=== PATIENT | male | born 1950 | race Caucasian/White ===

== ENCOUNTER 2020-05-18 08:21 | Outpatient (REF) | payer MEDICARE, BC, SELFPAY ==
[2020-05-18 11:26] LABS: Estimated Average Glucose 137 mg/dL; Hemoglobin A1c % 6.4 %
== END 2020-05-18 08:22 | disposition home or self-care (01) ==
LOC: HO.HMGCLDS 08:21
PROVIDERS: PCP Internal Medicine; Visit Provider Internal Medicine
DX: E11.9 Type 2 diabetes mellitus without complications (principal)
CPT/HCPCS: 83036

== ENCOUNTER 2024-04-09 06:26 | Day surgery (SDC) | payer MEDICARE, BC, SELFPAY ==
[2024-04-04 14:26] VITALS: BMI 30.2
[2024-04-09 06:39] VITALS: BP 170/72; PULSE 60; RESP 18; TEMP 36.9; O2SAT 98
[2024-04-09] MEDS: Lactated Ringers 1,000 ML 50 ML IVCONT (07:06)
--- NOTE | 2024-04-09 07:37 | MHC.SHP ---
Pre-Procedural Eval Section A - 24 Hr Update-Section A only Date of Service: 04/09/24 Section B - Complete if H&P > 30 days Chief Complaint: Encounter for screening for malignant neoplasm of Details of Present Illness: see H*P no changes Relevant Family History (Specify if Yes): No Relevant Social History: None Present Medications: see Short Stay Collaborative assessment Medical History: No relevant PMH Allergies: Allergies Allergy/AdvReac Type Severity Reaction Status Date / Time No Known Allergies Allergy Unverified 04/23/20 15:27 Review of Systems Sugical H&P ROS: Negative: Constitution, Cardiovascular, Respiratory, Neurological, Psychiatric, Hem-Onc, Allergic/Immunologic, Gastrointestinal, Genitourinary, Musculoskeletal, Integumentary, Endocrine and Eyes/Ears/Nose/Throat Exam Surgical H&P Exam: Normal: HEENT, Normal: Heart, Normal: Lungs, Normal: Extremities, Normal: Abdomen, Normal: Skin and Normal: Neurological Plan Diagnosis/Plan: Unchanged I have reviewed the history and physical and performed a pertinent physical examination on my patient. No changes have occurred unless specified. Time Spent With Patient Time: Total time managing care of this patient today ____ minutes.
--- NOTE | 2024-04-09 07:55 | P.CONAN_ITS ---
[facility] Past Medical History Medical History History of diet-controlled diabetes CAD (coronary artery disease) Hyperlipidemia HTN (hypertension) GERD (gastroesophageal reflux disease) Functional capacity: independent ambulation Family History Family history of problems with anesthesia: No Surgical History Surgical History Hx of cervical spine surgery History of coronary artery stent placement History of esophagogastroduodenoscopy (EGD) H/O colonoscopy History of Problems with Anesthesia: Yes Social History Social History Patient Tobacco Use Status: Never used Tobacco Have you been hit, kicked, punched, or otherwise hurt by someone within the past year? If so, by whom?: No Are you DNR?: No Advance Directives: No Advance Directives Information Provided: Yes Meds Allergies Allergy/AdvReac Type Severity Reaction Status Date / Time No Known Allergies Allergy Unverified 04/23/20 15:27 Active Medications: Current Medications Lactated Ringer's (Lr) 1,000 mls @ 50 mls/hr IVCONT .Q20H JESSIE Last Admin: 04/09/24 07:06 Dose: 50 mls/hr Home Medications ?Medication ?Instructions ?Recorded ?Confirmed ?Last Taken ?Type amlodipine 5 mg tablet 5 mg PO DAILY 04/04/24 04/04/24 04/08/24 History aspirin 81 mg tablet,delayed 81 mg PO DAILY 04/04/24 04/04/24 04/01/24 History release atorvastatin 10 mg tablet 10 mg PO DAILY 04/04/24 04/04/24 04/08/24 History carvedilol 12.5 mg tablet 12.5 mg PO DAILY 04/04/24 04/04/24 04/09/24 History losartan 50 mg tablet 50 mg PO DAILY 04/04/24 04/04/24 04/09/24 History spironolactone 25 mg tablet 25 mg PO DAILY 04/04/24 04/04/24 04/06/24 History Exam Height,Weight and Vital Signs: Height 5 ft 6 in Weight 84.277 kg Last Vital Signs Temp 98.5 F 04/09/24 06:39 Pulse 60 04/09/24 06:39 Resp 18 04/09/24 06:39 BP 170/72 H 04/09/24 06:39 Pulse Ox 98 04/09/24 06:39 O2 Del Method Room Air 04/09/24 06:39 Airway Mallampati Class: II TM Dist: >3cm Neck ROM: Full Heart: RRR Lungs: CTA Assessment and Plan Assessment Anesthesia Assessment: Anesthesia Plan Discussed Final Anesthetic Review Family History of Problems with Anesthesia: No History of Problems with Anesthesia: Yes NPO: Yes ASA Class: II Final Preanesthetic Review: Meds/Allgs Chart Reviewed, Consent Obtained/Reviewed and Anes Risks/Benef Reviewed Patient Risk: Low Procedure Risk: Low Anesthetic Plan Anesthetic Plan: MAC: Disposition: Standard PACU
[2024-04-09 08:21] VITALS: BP 92/40; PULSE 45; RESP 16; TEMP 36.1; O2SAT 96
--- NOTE | 2024-04-09 08:26 | OP_ITS ---
DATE OF SERVICE: 04/09/2024 SURGEON: Juice Kothari MD INDICATIONS: Colon cancer screening. PREOPERATIVE DIAGNOSIS: POSTOPERATIVE DIAGNOSIS: PROCEDURE PERFORMED: Colonoscopy to the terminal ileum with snare polypectomy. ESTIMATED BLOOD LOSS: COMPLICATIONS: ANESTHESIA: Monitored anesthesia care. ASSISTANTS: SPECIMENS: DESCRIPTION OF PROCEDURE: A history and physical performed, the risks and benefits of the procedure were explained to the patient. Informed consent was obtained. The patient placed in left lateral decubitus position. A digital rectal exam was performed and was found to be normal. The Olympus pediatric video colonoscope was introduced into the rectum and advanced to the cecum. The cecum was identified by transillumination, palpation, and identification of the ileocecal valve. Examination was performed and the scope was removed. He tolerated the procedure well and was taken to recovery in stable condition. FINDINGS: The terminal ileum was examined and appeared normal. The visualized colonic mucosa was normal. The quality of the prep was good. A single polyp measuring approximately 6 mm was identified in the cecum and removed with a snare. No other polyps were identified. Retroflexed examination showed some internal hemorrhoids. There was moderate sigmoid diverticulosis. IMPRESSION: Colon polyp. RECOMMENDATIONS: Follow up with the biopsy results. MD XOCHITL Bran/DOMINIC / [id number]
[2024-04-09 08:36] VITALS: BP 118/52; PULSE 48; RESP 16; TEMP 36.1; O2SAT 98
[2024-04-09 08:51] VITALS: BP 127/70; PULSE 50; RESP 17; TEMP 36.1; O2SAT 98
--- NOTE | 2024-04-09 09:40 | HO.POSTANES ---
Post Anesthesia Evaluation Post Anesthesia Evaluation Date of Service: 04/09/24 Vital Signs: Vital Signs Temp Pulse Resp BP Pulse Ox O2 Del Method 04/09/24 08:51 97 F 50 17 127/70 98 Room Air 04/09/24 08:36 97 F 48 L 16 118/52 L 98 Room Air 04/09/24 08:21 97 F 45 L 16 92/40 L 96 Room Air 04/09/24 06:39 98.5 F 60 18 170/72 H 98 Room Air Anesthesia: Monitored Mental Status: Awake Pain Control: Satisfactory Nausea/Vomiting: None Hydration: Adequate Anesthesia-Related Issues: No Anes. Related Issues
== END 2024-04-09 09:17 | disposition home or self-care (01) ==
PROVIDERS: PCP Internal Medicine; Visit Provider Internal Medicine Gastroenterology
PROC: 0DJD8ZZ Inspection of Lower Intestinal Tract, Via Natural or Artificial Opening Endoscopic (ICD-10-PCS; CPT 45378; principal; 2024-04-09 07:30)
DX: Z12.11 Encounter for screening for malignant neoplasm of colon (principal); Z80.0 Family history of malignant neoplasm of digestive organs; D12.0 Benign neoplasm of cecum; K57.30 Diverticulosis of large intestine without perforation or abscess without bleeding; K64.8 Other hemorrhoids; K59.00 Constipation, unspecified; K21.9 Gastro-esophageal reflux disease without esophagitis; I10 Essential (primary) hypertension; E11.9 Type 2 diabetes mellitus without complications; E78.5 Hyperlipidemia, unspecified; I25.10 Atherosclerotic heart disease of native coronary artery without angina pectoris; Z95.5 Presence of coronary angioplasty implant and graft; Z79.82 Long term (current) use of aspirin; Z79.899 Other long term (current) drug therapy
CPT/HCPCS: 45385; 88305; J2704

== ENCOUNTER 2025-02-11 13:16 | Outpatient (AMB) | payer MEDICARE, BC, SELFPAY ==
--- OUTSIDE RECORDS SUMMARY | 2024-04-09 03:30 | XMS_ITS ---
Author Organization [facility] [place] Address [address] [place] [id number] Care Team Providers Care Salt Washer Harvesting Station Name Role Phone Don MERCADO, Ruben Primary Care Provider Unavailab Juice Medina Jr [phone] REASON FOR VISIT screening Encounters Encounter Location Date Provider Diagnosis [facility] Outpatient [address] [place] [id number] 04/09/2024 Juice Kothari Jr Colon cancer screening Z12.11 ; Colon polyps K63.5 and Family history of colon cancer Z80.0 Assessments Encounter Date Diagnosis (ICD Code) Assessment Notes Treatment Notes Treatment Clinical Notes Section Notes 04/09/2024 Colon cancer screening (ICD-10 - Z12.11) 04/09/2024 Colon polyps (ICD-10 - K63.5) 04/09/2024 Family history of colon cancer (ICD-10 - Z80.0) Plan Of Treatment No Information Progress Notes * STEFF YANG PDOB: (74 yo M)Acc No.[id number]:04/09/2024 COLON WITH MAC Patient: Dilcia STEFF EASON Provider: Alex Kothari MD :1950 A ge:73 Y S ex:Male Date:04/09/2024 Address:[address] [place], [place] [phone] Pcp:Ruben Ochoa MD Subjective: * Chief Complaints: * 1 . Screening. * Medical History: Objective: * Vitals: Assessment: * Assessment: 1. C olon cancer screening - Z12.11 (Primary) 2 . C olon polyps - K63.5? 3. F amily history of colon cancer - Z80.0 Plan: * Treatment: * Procedure Codes: 4 5385 LESION REMOVAL COLONOSCOPY, 0529F INTRVL 3+YRS PTS CLNSCP DOCD * * The named appointment provid er may or may not be the originator of this progress note, and it is not deemed complete until electronically signed by the appointment provider. Sign off status: Pending * Provider: Alex Kothari MD Date: 0 04/09/2024 Generated for Fabián kiran/Benny/Diomedesitting on: 0 02/11/2025 01:55 PM EDT
--- NOTE | 2025-02-11 13:17 | MHC.PC.OV ---
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 Required: No Accompanied by: Self / Same As Patient Allergies No Known Allergies Allergy (Unverified 02/11/25 14:14) Medication List - Last Reconciled 02/11/25 by Kiet Singer MD amlodipine 5 mg PO DAILY aspirin 81 mg PO DAILY atorvastatin 10 mg PO DAILY carvedilol 12.5 mg PO BID losartan 50 mg PO DAILY spironolactone 25 mg PO DAILY Tobacco use date assessed: 02/11/25 Fall risk assessment: No Falls in past year Last assessed Fall Risk: 02/11/25 Dental Screening Dental Screen Date: 02/11/25 Did you have a dental visit in the last 12 months?: Yes Did you have a dental problem in the last 6 months where you did not have access to dental care?: No Was dental information given to patient?: Patient has dentist [facility] Medical History History of diet-controlled diabetes CAD (coronary artery disease) Hyperlipidemia HTN (hypertension) GERD (gastroesophageal reflux disease) Surgical History Hx of cervical spine surgery History of coronary artery stent placement History of esophagogastroduodenoscopy (EGD) H/O colonoscopy (~04/09/24) Family History Father Cancer BP (high blood pressure) Heart disease Mother Multiple myeloma Heart disease BP (high blood pressure) Social History Housing: House Alcohol intake: current Alcohol intake frequency: does not drink Patient Tobacco Use Status: Never used Tobacco service: No Current occupational status: retired Cognitive needs: No Hearing needs: No Vision needs: Yes (rx glasses) Questionnaire PHQ-9 Over the last 2 weeks, how often have you been bothered by any of the following problems? 1. Little interest or pleasure in doing things: not at all 2. Feeling down, depressed, or hopeless: not at all 3. Trouble falling or staying asleep, or sleeping too much: not at all 4. Feeling tired or having little energy: not at all 5. Poor appetite or overeating: not at all 6. Feeling bad about yourself - or that you are a failure or have let yourself or your family down: not at all 7. Trouble concentrating on things, such as reading the newspaper or watching television: not at all 8. Moving or speaking so slowly that other people could have noticed. Or the opposite - being so fidgety or restless that you have been moving around a lot more than usual: not at all 9. Thoughts that you would be better off or of hurting yourself in some way: not at all Total score: 0 Source: Developed by Drs. Reilly Blevins, Rebekah Glynn, Kurt Hernandez and colleagues, with an educational koby from [employer] Thrive Questionnaire Date Thrive assessed: 02/11/25 I am a: Patient What is your living situation today?: I have a steady place to live Within the past 12 months, did the food you bought not last and you didn't have the money to get more?: Never true Within the past 12 months, did you worry whether your food would run out before you got money to buy more?: Never true Do you have trouble paying for medicines?: No Do you have trouble getting transportation to medical appointments?: No Do you have trouble paying your heating and electricity bill?: No Do you have trouble taking care of your child, family member or friend?: No Do you have trouble with day-to-day activities such as bathing, preparing meals, shopping, managing finances, etc.?: No Are you currently unemployed and looking for a job?: No Are you interested in more education?: No Please select the resources that you would like help with: None THRIVE Score: 0 AUDIT C Alcohol Use Questionnaire (AUDIT-C) 1. How often do you have a drink containing alcohol?: Never 3. How often do you have six or more drinks on one occasion?: Never Total Score: 0 BIBIANA-7 AMB Questionnaire BIBIANA-7 Date BIBIANA - 7 assessed: 02/11/25 Feeling nervous, anxious, or on edge: 0 = Not at all Not being able to stop or control worryin = Not at all Worrying too much about different things: 0 = Not at all Trouble relaxin = Not at all Being so restless that it is hard to sit still: 0 = Not at all Becoming easily annoyed or irritable: 0 = Not at all Feeling afraid as if something awful might happen: 0 = Not at all Total BIBIANA-7 score (0-4 normal; 5-9 mild; 10-14 moderate; 15-21 severe): 0 Source: Developed by Drs. Reilly Blevins, Rebekah Glynn, Kurt Hernandez and colleagues, with an educational koby from [employer] Physical exam (Primary Care) Vital Signs: Last Vital Signs Temp 97.8 F 02/11/25 13:35 Pulse 56 02/11/25 13:35 Resp 16 02/11/25 13:35 BP 178/80 H 02/11/25 13:35 Pulse Ox 98 02/11/25 13:35 Oxygen Delivery Method Room Air 02/11/25 13:35 BMI result Body Mass Index 29.6 Tobacco/Smoking Status: Tobacco use Status Tobacco use date assessed 02/11/25 02/11/25 13:18 Patient Tobacco Use Status Never used Tobacco 02/11/25 13:18 PHQ-9: PHQ-9 Score PHQ-9: Total score 0 02/11/25 13:46 Thrive Assessment: Date of Thrive Assessment Date Thrive assessed 02/11/25 02/11/25 13:18 Advance Care Planning discussion: On file, no changes Date of discussion: 02/11/25 Forms completed: Health Care Proxy and MOLST Coding Level of Care Code New Pt Level 4 (54015) Complex EM visit Add On G2211 Diagnoses History of diet-controlled diabetes Z86.39 Additional Codes Vital Signs *Quality* - Advance Care Planning discussion: On file, no changes ([id number]) Assessment & Plan Assessment & Plan (1) History of diet-controlled diabetes: Code(s): Z86.39 - Personal history of other endocrine, nutritional and metabolic disease Category: Medical Plan: BW ordered. Will call with results Plan History of Present Illness - The patient is a 74-year-old male presenting with management of diabetes mellitus and cervical disc disorder. - Diabetes mellitus: The patient has been managing elevated blood glucose levels through diet and exercise, with a recent A1c of 5.7%. - Cervical disc disorder: He underwent surgery for a bulging cervical disc, initially presenting with radiating shoulder pain. - He experiences occasional shoulder pain and symptoms similar to tennis elbow, managed with physical activity. - Preventative care: He is current with his colonoscopy and has an eye exam scheduled for March. 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 Review of Systems - Endocrine: Reports elevated blood glucose levels, denies any new symptoms. - Musculoskeletal: Reports occasional shoulder pain and symptoms resembling tennis elbow, denies current pain or discomfort. - Ophthalmologic: Denies vision problems, reports corrective vision with no halos or night driving issues. Physical Exam General: Cooperative and healthy appearing Nutritional Appearance: Well nourished Orientation/consciousness: Patient oriented x3 Limitations: No limitations Head: Normal to inspection General: Appearance normal, both eyes and all related structures Neck: Normal visual inspection Chest: Normal palpation of entire chest wall Respiratory: N ormal respiratory effort Neurology: Patient oriented x3, reports past surgery on neck for bulging disc, occasional numbness and pain radiating from shoulder to thumb, potential left arm discomfort with lifting, no current symptoms of pain or discomfort. Results - Labs: A1c result of 5.7% from recent testing in [place]. Plan 1. Diabetes Mellitus - Continue management with diet and exercise. - Obtain blood work at the local lab for further evaluation. 2. Cervical Disc Disorder - Monitor symptoms and consider physical therapy for strengthening. - If symptoms persist, consider MRI for further assessment. 3. Tennis Elbow - Recommend physical therapy to strengthen the affected area. Discussion Notes I discussed with the patient the importance of managing diabetes through diet and exercise, and the need for regular blood work to monitor his condition. We also talked about the cervical disc disorder and the potential benefits of physical therapy. If symptoms persist, we may consider an MRI for further evaluation. The patient was informed about the process for obtaining blood work at the local lab and was advised to follow up as needed. Patient Instructions - Continue with your current diet and exercise routine to manage blood sugar levels. - Get your blood work done at the local lab as soon as possible. - Attend physical therapy sessions to strengthen your neck and elbow. - Schedule an MRI if symptoms persist after physical therapy. Orders: Orders Basic Metabolic Panel Today Z86.39 - Personal history of other endocrine, nutritional and metabolic disease Liver Panel Today Z86.39 - Personal history of other endocrine, nutritional and metabolic disease Thyroid Stimulating Hormone Today Z86.39 - Personal history of other endocrine, nutritional and metabolic disease UA and rflx microscopic Today Z86.39 - Personal history of other endocrine, nutritional and metabolic disease Complete Blood Count no Diff Today Z86.39 - Personal history of other endocrine, nutritional and metabolic disease Lipid Panel Today Z86.39 - Personal history of other endocrine, nutritional and metabolic disease Hemoglobin A1c Today Z86.39 - Personal history of other endocrine, nutritional and metabolic disease Microalbumin, Random (w Creat) Today Z86.39 - Personal history of other endocrine, nutritional and metabolic disease
[2025-02-11 13:35] VITALS: BP 178/80; PULSE 56; RESP 16; TEMP 36.6; O2SAT 98; BMI 29.6
--- OUTSIDE RECORDS SUMMARY | 2025-02-11 13:55 | XMS_ITS | Patient Health Record ---
Author Organization [facility] Address [address] [place] [address] Care Team Providers Care Face Painter Name Role Phone Ruben Ochoa MD Primary Care Provider Kishore Fitzgerald Unavailable [phone] Reason For Referral No Information Medications Medication SIG (Take, Route, Frequency, Duration) Notes Start Date End Date Status Night Splint AFO - L1930 as directed Active Valsartan 320 MG Oral; Duration: 90 Active Atorvastatin Calcium 10 MG Oral; Duration: 90 Active ASA Active amLODIPine Besylate 5 MG Orally Once a day Active Spironolactone 25 MG Orally Once a day Active Carvedilol 12.5 MG Orally A ctive Social History Tobacco Use: Social History Observation Description Date Details (start date - stop date) Never Smoker NA - NA Tobacco Use/Smoking Question Answer Notes Are you a: nonsmoker Additional Findings: Tobacco Non-User Current no n-smoker Alcohol Screen Question Answer Notes Did you have a drink containing alcohol in the p ast year? No Points 0 Interpretation Negative Tobacco use other than smoking: Question Answer Notes Are you an other tobacco user? No Problems Problem Type SNOMED Code ICD Code Onset Dates Problem Status W/U Status Risk Notes Problem Pain in left foot (M79.672) Active confirmed Plan Of Treatment Pending Test Test Name Order Date X ray : Ankle, left 2V 04/07/2015 X ray : Foot, left 3V 04/07/2015 X ray : Foot, right 3V 01/15/2018 Insurance Providers Payer Name Payer Address Payer Phone Subscriber Number Group Number Insured Name Patient Relationship to Insured Coverage Start Date Coverage End Date Medicare [employer] [address] [place] [address] [id number] Alvin Lazo Self - patient is the insured 7 [facility] [address] [place] [address] [id number] Shireen Lazo Spouse - patient is the spouse of the insured 6 Medical (General) History Medical History History ICD Code Diabetic Heart disease Hypertension Measles Mumps Chicken pox Surgical History Surgery Date(Month/Year) Stent 05/2013
--- OUTSIDE RECORDS SUMMARY | 2025-02-11 13:55 | XMS_ITS | Patient Health Record ---
Author Organization [facility] Address [address] [place] [address] Care Team Providers Care Scrap Yard Worker Name Role Phone PCP, NO Primary Care Provider Unavailabl e ORLANDO RUELAS Unavailable Unavailable Allergies No Known Allergies Reason For Referral No Information Medications Medication SIG (Take, Route, Fr equency, Duration) Notes Start Date End Date Status amLODIPine Besylate Active Spironolactone Activ e Aspir-81 Active Losartan Potassium A ctive Carvedilol Active Social History Tobacco Use: Social History Observation Description Date Details (start date - stop date) Never Smoker NA - NA Tobacco Use/Smoking Question Answer Notes Are you a nonsmoker Problems Problem Type SNOMED Code ICD Code Onset Dates Problem Status W/U Status Risk Notes Problem Low back pain (401392454) Low back pain (M54.5) Active confirmed Problem Long-term current use of opiate analgesic (Z79.891) Active confirmed Plan Of Treatment Pending Test Test Name Order Date 12 Panel Drug Screen 10/20/2020 Insurance Providers Payer Name Payer Address Payer Phone Subscriber Number Group Number Insured Name Patient Relationship to Insured Coverage Start Date Coverage End Date MEDICARE OF [place] [employer] [address] [place] [phone] [id number] STEFF CONTRERAS Self - patient is the insured 7 [facility] [address] [place] [address] [id number] STEFF CONTRERAS Self - patient is the insured 0 Medical (General) History Medical History History ICD Code High blood pressure Chest pain Diabetes Angioplasty Surgical History Surgery Date(Month/Year) coronary stent 2013
== END 2025-02-11 14:13 | disposition home or self-care (01) ==
LOC: HO.HMCSH 13:16
PROVIDERS: PCP Internal Medicine; Visit Provider Internal Medicine
DX: Z86.39 Personal history of other endocrine, nutritional and metabolic disease (principal); Z00.00 Encounter for general adult medical examination without abnormal findings

== ENCOUNTER → 2025-02-11 13:16 | Outpatient (BNVA) | payer MEDICARE, BC, SELFPAY | PROVIDERS: PCP Internal Medicine; Visit Provider Internal Medicine | DX: Z76.89 Persons encountering health services in other specified circumstances (principal); Z86.39 Personal history of other endocrine, nutritional and metabolic disease; I10 Essential (primary) hypertension; E78.5 Hyperlipidemia, unspecified; I25.10 Atherosclerotic heart disease of native coronary artery without angina pectoris; K21.9 Gastro-esophageal reflux disease without esophagitis | CPT/HCPCS: 99202 ==

== ENCOUNTER 2025-02-12 08:10 | Outpatient (REF) | payer MEDICARE, BC, SELFPAY ==
--- OUTSIDE RECORDS SUMMARY | 2024-04-09 03:30 | XMS_ITS ---
Author Organization [facility] Address [address] [place] [address] Care Team Providers Care Boiler Operator Helper Name Role Phone Don MERCADO, Ruben Primary Care Provider Unavailab Juice Medina Jr [phone] REASON FOR VISIT screening Encounters Encounter Location Date Provider Diagnosis [facility] Outpatient [address] [place] [id number] 04/09/2024 Juice Kothari Jr Colon cancer screening [...] * STEFF YANG PDOB: (74 yo M)Acc No.[id number]:04/09/2024 COLON WITH MAC Patient: Dilcia STEFF EASON Provider: Alex Kothari MD :1950 A ge:73 Y S ex:Male Date:04/09/2024 Address:[address] [place], [place] [id number] Pcp:Ruben Ochoa MD Subjective: * Chief Complaints: [...] 04/09/2024 Generated for Fabián kiran/Benny/Diomedesitting on: 0 02/12/2025 08:12 AM EDT
--- OUTSIDE RECORDS SUMMARY | 2025-02-12 08:12 | XMS_ITS | Patient Health Record ---
Author Organization [facility] Address [address] [place] [address] Care Team Providers Care Home Appliances Mechanic Name Role Phone Ruben Ochoa MD Primary Care Provider Kishore Fitzgerald Unavailable [phone] Reason For Referral No Information Medications Medication [...] Risk Notes Problem Pain in left foot (908923480121 107) Pain in left foot (M79.672) Active confirmed [...] Medicare National [employer] [address] [place] [address] [id number] Alvin Lazo Self - patient is the insured 7 [facility] [address] [place] [address] [id number] Shireen Lazo Spouse - patient is the spouse of the insured 6 Medical (General) History Medical History History ICD Code Diabetic Heart disease Hypertension Measles Mumps Chicken pox Surgical History Surgery Date(Month/Year) Stent 05/2013
--- OUTSIDE RECORDS SUMMARY | 2025-02-12 08:12 | XMS_ITS | Patient Health Record ---
Author Organization [facility] Address [address] [place] [address] Care Team Providers Care Electrician Apprentice Name Role Phone PCP, NO Primary Care [...] Status Risk Notes Problem Low back pain (105992003) Low back pain (M54.5) Active confirmed Problem [...] [address] DARI[place] krause [phone] [id number] STEFF CONTRERAS Self - patient is the insured 7 [facility] [address] [place] [address] [id number] STEFF CONTRERAS Self - patient is the insured 0 Medical (General) History Medical History History ICD Code High blood pressure Chest pain Diabetes Angioplasty Surgical History Surgery Date(Month/Year) coronary stent 2013
[2025-02-12 10:37] LABS: Hematocrit 40.3 % (42.0-52.0); Hemoglobin 13.6 g/dl (14.0-18.0); Mean Corpuscular HGB Conc 33.7 g/dl (31.0-36.0); Mean Corpuscular Hemoglobin 31.1 pg (27.0-33.0); Mean Corpuscular Volume 92.0 fL (80.0-98.0); NRBC Abs Auto 0.000 X10*3/uL (0.0-0.012); NRBC Pct Auto 0.0 /100WBC (0.0-0.2); Platelet Count 134 X10*3/uL (160-400); Red Blood Count 4.38 X10*6/uL (4.60-5.80); White Blood Count 4.7 X10*3/uL (4.8-10.8)
[2025-02-12 10:58] LABS: Appearance Urine Clear; Glucose Urine UA Negative (Negative); PH 5.5 (5.0-9.0); Specific Gravity - Urine 1.020 (1.005-1.025)
[2025-02-12 10:58] LABS: Hemoglobin A1C 172.4065 umol/L; Total Hemoglobin (HGBA1C) 3547.5633 umol/L
[2025-02-12 11:16] LABS: Alanine Aminotransferase 35 U/L (0-40); Albumin Level 4.2 g/dL (3.5-5.0); Alkaline Phosphatase 57 U/L (39-117); Anion Gap 11 (12-20); Aspartate Amino Transferase 31 U/L (5-37); Blood Urea Nitrogen 23 mg/dL (9-16); Calcium 8.3 mg/dL (8.4-10.2); Carbon Dioxide 26 mmol/L (22-29); Chloride 106 mmol/L (96-108); Cholesterol 110 mg/dL (<200); Estimated Glomerular Filt Rate > 60; HDL Cholesterol 40 mg/dL (>40); Potassium 3.8 mmol/L (3.3-5.1); Sodium 139 mmol/L (135-145); Thyroid Stimulating Hormone 1.33 uIU/mL (0.32-4.0); Total Protein 6.7 g/dL (6.5-8.0); Triglycerides 46 mg/dL (<150)
[2025-02-12 11:19] LABS: Microalbum/Creatinine Ratio Ur 8.3 ug/mg cr (<30)
== END 2025-02-12 08:11 | disposition home or self-care (01) ==
LOC: HO.HMGCLDS 08:10
PROVIDERS: PCP Internal Medicine; Visit Provider Internal Medicine
DX: Z86.39 Personal history of other endocrine, nutritional and metabolic disease (principal)
CPT/HCPCS: 36415; 80048; 80061; 80076; 81003; 82043; 82570; 83036; 84443; 85027

== ENCOUNTER 2025-04-08 08:50 | Outpatient (AMB) | payer MEDICARE, BC, SELFPAY ==
--- OUTSIDE RECORDS SUMMARY | 2024-04-09 03:30 | XMS_ITS ---
Author Organization [facility] Address [address] [place] [phone] Care Team Providers Care Weatherization Operations Manager Name Role Phone Don (RETIRED) Ruben MERCADO Primary Care Provider Unavailable Juice Kothari Jr [phone] REASON FOR VISIT screening Encounters Encounter Location Date Provider Diagnosis [facility] Outpatient [address] [place] [id number] 04/09/2024 Juice Kothari Jr Colon cancer screening [...] * STEFF YANG PDOB: (74 yo M)Acc No.[id number]:04/09/2024 COLON WITH MAC Patient: Dilcia STEFF EASON Provider: Alex Kothari MD :1950 A ge:73 Y S ex:Male Date:04/09/2024 Address:[address] [place], [place] [phone] Pcp:Ruben Ochoa (RETIRED) MD Subjective: * Chief Complaints: * 1 [...] Pending * Provider: Alex Kothari MD Date: 04/09/2024 Generated for Fabián kiran/Benny/Diomedesitting on: 04/08/2025 09:35 AM EDT
[2025-04-08 09:02] VITALS: BP 138/80; PULSE 62; RESP 16; TEMP 36.8; O2SAT 96; BMI 29.5
--- NOTE | 2025-04-08 09:02 | MHC.PC.OV ---
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 Accompanied by: Self / Same As Patient Allergies No Known Allergies Allergy (Unverified 04/08/25 09:03) Tobacco use date assessed: 04/08/25 Dental Screening Dental Screen Date: 02/11/25 [facility] Medical History (Updated 04/08/25 @ 09:36 by Kiet Singer MD) History of diet-controlled diabetes CAD (coronary artery disease) Hyperlipidemia HTN (hypertension) GERD (gastroesophageal reflux disease) Surgical History Hx of cervical spine surgery History of coronary artery stent placement History of esophagogastroduodenoscopy (EGD) H/O colonoscopy (~04/09/24) Family History Father Cancer BP (high blood pressure) Heart disease Mother Multiple myeloma Heart disease BP (high blood pressure) Social History Housing: House Alcohol intake: current Alcohol intake frequency: does not drink Patient Tobacco Use Status: Never used Tobacco service: No Current occupational status: retired Cognitive needs: No Hearing needs: No Vision needs: Yes (rx glasses) Questionnaire PHQ-9 Over the last 2 weeks, how often have you been bothered by any of the following problems? 1. Little interest or pleasure in doing things: not at all 2. Feeling down, depressed, or hopeless: not at all 3. Trouble falling or staying asleep, or sleeping too much: not at all 4. Feeling tired or having little energy: not at all 5. Poor appetite or overeating: not at all 6. Feeling bad about yourself - or that you are a failure or have let yourself or your family down: not at all 7. Trouble concentrating on things, such as reading the newspaper or watching television: not at all 8. Moving or speaking so slowly that other people could have noticed. Or the opposite - being so fidgety or restless that you have been moving around a lot more than usual: not at all 9. Thoughts that you would be better off or of hurting yourself in some way: not at all Total score: 0 Source: Developed by Drs. Reilly Blevins, Rebekah Glynn, Kurt Hernandez and colleagues, with an educational koby from [employer]. Thrive Questionnaire Date Thrive assessed: 02/11/25 I am a: Patient What is your living situation today?: I have a steady place to live Within the past 12 months, did the food you bought not last and you didn't have the money to get more?: Never true Within the past 12 months, did you worry whether your food would run out before you got money to buy more?: Never true Do you have trouble paying for medicines?: No Do you have trouble getting transportation to medical appointments?: No Do you have trouble paying your heating and electricity bill?: No Do you have trouble taking care of your child, family member or friend?: No Do you have trouble with day-to-day activities such as bathing, preparing meals, shopping, managing finances, etc.?: No Are you currently unemployed and looking for a job?: No Are you interested in more education?: No Please select the resources that you would like help with: None THRIVE Score: 0 AUDIT C Alcohol Use Questionnaire (AUDIT-C) 1. How often do you have a drink containing alcohol?: Never 3. How often do you have six or more drinks on one occasion?: Never Total Score: 0 BIBIANA-7 AMB Questionnaire BIBIANA-7 Date BIBIANA - 7 assessed: 02/11/25 Feeling nervous, anxious, or on edge: 0 = Not at all Not being able to stop or control worryin = Not at all Worrying too much about different things: 0 = Not at all Trouble relaxin = Not at all Being so restless that it is hard to sit still: 0 = Not at all Becoming easily annoyed or irritable: 0 = Not at all Feeling afraid as if something awful might happen: 0 = Not at all Total BIBIANA-7 score (0-4 normal; 5-9 mild; 10-14 moderate; 15-21 severe): 0 Source: Developed by Drs. Reilly Blevins, Rebekah Glynn, Kurt Hernandez and colleagues, with an educational koby from [employer]. Physical exam (Primary Care) Vital Signs: Last Vital Signs Temp 98.2 F 04/08/25 09:02 Pulse 62 04/08/25 09:02 Resp 16 04/08/25 09:02 BP 138/80 04/08/25 09:02 Pulse Ox 96 04/08/25 09:02 Oxygen Delivery Method Room Air 04/08/25 09:02 BMI result Body Mass Index 29.5 Tobacco/Smoking Status: Tobacco use Status Tobacco use date assessed 04/08/25 04/08/25 09:09 Patient Tobacco Use Status Never used Tobacco 04/08/25 09:09 PHQ-9: PHQ-9 Score PHQ-9: Total score 0 04/08/25 09:09 Thrive Assessment: Date of Thrive Assessment Date Thrive assessed 02/11/25 04/08/25 09:09 Coding Level of Care Code Est Pt Level 4 (92658) Est Pt Prev Care >65y(60284) Diagnoses History of diet-controlled diabetes Z86.39 HTN (hypertension) I10 Annual physical exam Z00.00 Assessment & Plan Assessment & Plan (1) History of diet-controlled diabetes: Code(s): Z86.39 - Personal history of other endocrine, nutritional and metabolic disease Category: Medical Plan: Pt was encouraged to start Metformin. He declined. (2) HTN (hypertension): Code(s): I10 - Essential (primary) hypertension Category: Medical Plan: Continue meds at same dosage (3) Annual physical exam: Code(s): Z00.00 - Encounter for general adult medical examination without abnormal findings Plan: History of Present Illness - The patient is a 74-year-old male presenting for a routine physical examination and management of chronic conditions. - Essential Hypertension: Managed with multiple antihypertensive medications, achieving stable control after initial challenges. - Hyperlipidemia: Controlled with alternate-day statin therapy, supported by favorable cholesterol levels. - Prediabetes: Monitored with an A1c of 6.6, managed through lifestyle modifications without pharmacotherapy. - Coronary Artery Disease: History of stent placement following chest pain, with effective blood pressure management contributing to cardiac health. - Preventative care: PSA screening planned, with previous results showing a PSA level of 1.7 five years ago. Social History - The patient resides part-time in [place], traveling there for the winter months. He prefers flying over driving for convenience. - He uses continuous glucose monitors to manage his prediabetes and is proactive in maintaining his health through regular screenings and specialist visits. Review of Systems - Cardiovascular: Denies current chest pain or palpitations. - Endocrine: Reports stable glucose levels with continuous monitoring, denies symptoms of hyperglycemia. Physical Exam General: Cooperative and healthy appearing Nutritional Appearance: Well nourished Orientation/consciousness: Patient oriented x3 Limitations: No limitations Head: Normal to inspection General: Appearance normal, both eyes and all related structures Neck: Normal visual inspection Chest: Normal palpation of entire chest wall Respiratory: Everything looks okay. ormal respiratory effort Neurology: Patient oriented x3. Results - Labs: Hemoglobin A1c at 6.6, indicating prediabetes. - Labs: Previous PSA level of 1.7, with a new test planned. Plan 1. Essential Hypertension - Continue current antihypertensive regimen including amlodipine, carvedilol, losartan, and spironolactone. - Monitor blood pressure regularly to ensure continued control. 2. Hyperlipidemia - Continue alternate-day statin therapy due to satisfactory cholesterol levels. 3. Prediabetes - Monitor A1c levels regularly, with a follow-up test planned before travel. - Encourage lifestyle modifications including diet and exercise to manage glucose levels. 4. Coronary Artery Disease - Maintain current cardiovascular management plan, including blood pressure control. 5. Preventative Care: Prostate-Specific Antigen (Psa) Screening - Schedule PSA screening before the patient's travel to [place]. Discussion Notes During the visit, we discussed the management of the patient's chronic conditions, including hypertension, hyperlipidemia, and prediabetes. I emphasized the importance of maintaining current medication regimens and lifestyle modifications. We also planned for a PSA screening before the patient's travel to [place]. The patient was advised to monitor his blood pressure and glucose levels regularly and to follow up with any changes in his health status. Patient Instructions - Continue taking all prescribed medications as directed. - Monitor blood pressure and glucose levels regularly. - Schedule and complete PSA screening before traveling to [place]. - Maintain a healthy diet and exercise regularly to manage prediabetes.
--- OUTSIDE RECORDS SUMMARY | 2025-04-08 09:35 | XMS_ITS | Patient Health Record ---
Author Organization [facility] Address [address] [place] [address] Care Team Providers Care Director Of Transportation Name Role Phone Ruben Ochoa MD Primary Care Provider Kishore Fitzgerald Unavailable [phone] Reason For Referral No Information Medications Medication [...] Risk Notes Problem Pain in left foot (589886745162 107) Pain in left foot (M79.672) Active [...] Medicare National [employer] [address] [place] [address] [id number] Alvin Lazo Self - patient is the insured 7 [facility] [address] [place] [address] [id number] Shireen Lazo Spouse - patient is the spouse of the insured 6 Medical (General) History Medical History History ICD Code Diabetic Heart disease Hypertension Measles Mumps Chicken pox Surgical History Surgery Date(Month/Year) Stent 05/2013
--- OUTSIDE RECORDS SUMMARY | 2025-04-08 09:35 | XMS_ITS | Patient Health Record ---
Author Organization [facility] Address [address] [place] [address] Care Team Providers Care Steward/Stewardess Bath Name Role Phone Don (RETIRED) Ruben MERCADO Primary Care Provider Unavailable Juice Kothari Jr Unavailable Allergies No Known Allergies Results Component Value Reference Range Notes Pathology Reviewed date:04/17/2024 08:30:25 AM Interpretation: Performing Lab:[facility], [address] [place] [id number] Notes/Report: Reason For Referral No Information Medications Medication SIG (Take, Route, Frequency, Duration) Notes Start Date End Date Status MiraLax (colon prep) 17 GM/SCOOP mixed with Gatorade or Crystal Light Orally begin at 5:00 p.m. the day before the procedure for 1 day 01/15/2024 Active Losartan Potassium 50 MG 1 tablet Orally Once a day Active Spironolactone 25 MG 1 tablet with food Orally Once a day 04/06/2018 Active Carvedilol 12.5 MG 1 Orally QD Active Atorvastatin Calcium 10 MG 1 tablet Oral ly Once a day Active Aspir-81 81 MG 1 tablet Orally Once a day Active amLODIPine Besylate 5 MG 1 tablet Orally Once a day Active Immunizations Vaccine Route Administration Date Status Comme nts Influenza Unknown 01/15/2024 Refused Social History Tobacco Use: Social History Observation Description Date Details (start date - stop date) Never Smoker NA - NA Tobacco Use/Smoking Question Answer Notes Patient is a nonsmoker Alcohol Screen Question Answer Notes Did you have a drink containing alcohol in the p ast year? No Points 0 Interpretation Negative Problems Problem Type SNOMED Code ICD Code Onset Dates Problem Status W/U Status Risk Notes Problem 022809998 Colon cancer screening (Z12.11) Active confirmed Problem 96246730 Constipation, unspecified constipation type (K59.00) Active confirmed Problem 873986456 Gastroesophageal reflux disease, unspecified whether esophagitis present (K21.9) Active confirmed Encounters Encounter Location Date Provider Diagnosis [facility] [address] [place], [place] [id number] 04/09/2024 Juice Kothari Jr Colon cancer screening Z12.11 ; Colon polyps K63.5 and Family history of colon cancer Z80.0 [facility] [address] [place] [address] 04/17/2024 Juice Kothari Jr [facility] [address] [place] [phone] 07/16/2024 Juice Kothari Jr Assessments Encounter Date Diagnosis (ICD Code) Assessment Notes Treatment Notes Treatment Clinical Notes Section Notes 04/09/2024 Colon cancer screening (ICD-10 - Z12.11) 04/09/2024 Colon polyps (ICD-10 - K63.5) 04/09/2024 Family history of colon cancer (ICD-10 - Z80.0) Plan Of Treatment Future Test Test Name Order Date UPPER GI ENDOSCOPY 04/06/2018 COLONOSCOPY 04/06/2018 COLONOSCOPY 01/15/2024 Insurance Providers Payer Name Payer Address Payer Phone Subscriber Number Group Number Insured Name Patient Relationship to Insured Coverage Start Date Coverage End Date MEDICARE OF [place] [address] [facility] [place] [address] [id number] STEFF CONTRERAS Self - patient is the insured [facility] [address] [place], [place] [id number] STEFF CONTRERAS Self - patient is the insured Medical (General) History Medical History History ICD Code Hyperlipidemia Hypertension Coronary artery disease, history of sten t placement 2013 Colonoscopy 05/24, negative, five-year f ollowup Gastroesophageal reflux disease, EGD , no BE or HP Surgical History Surgery Date(Month/Year) removal of benign skin lesions Coronary artery stent placement 2013 Cervical disc repair
--- OUTSIDE RECORDS SUMMARY | 2025-04-08 09:36 | XMS_ITS | Patient Health Record ---
Author Organization [facility] Address [address] [place] [address] Care Team Providers Care Long Filler Cigar Roller Machine Name Role Phone PCP, NO Primary Care [...] Status Risk Notes Problem Low back pain (858858210) Low back pain (M54.5) Active confirmed Problem High risk drug monitoring status (295627013) Long-term current use of opiate analgesic (Z79.891) Active confirmed Plan Of Treatment Pending Test Test Name Order Date 12 Panel Drug Screen 10/20/2020 Insurance Providers Payer Name Payer Address Payer Phone Subscriber Number Group Number Insured Name Patient Relationship to Insured Coverage Start Date Coverage End Date MEDICARE OF [place] [employer] [address] [place] [phone] [id number] STEFF CONTRERAS Self - patient is the insured 7 [facility] [address] [place] [address] [id number] STEFF CONTRERAS Self - patient is the insured 0 Medical (General) History Medical History History ICD Code High blood pressure Chest pain Diabetes Angioplasty Surgical History Surgery Date(Month/Year) coronary stent 2013
== END 2025-04-08 09:37 | disposition home or self-care (01) ==
LOC: HO.HMCSH 08:50
PROVIDERS: PCP Internal Medicine; Visit Provider Internal Medicine
DX: Z00.00 Encounter for general adult medical examination without abnormal findings (principal); Z86.39 Personal history of other endocrine, nutritional and metabolic disease; I10 Essential (primary) hypertension

== ENCOUNTER → 2025-04-08 08:50 | Outpatient (BNVA) | payer MEDICARE, BC, SELFPAY | PROVIDERS: PCP Internal Medicine; Visit Provider Internal Medicine | DX: Z00.00 Encounter for general adult medical examination without abnormal findings (principal); I10 Essential (primary) hypertension; I25.10 Atherosclerotic heart disease of native coronary artery without angina pectoris; Z86.39 Personal history of other endocrine, nutritional and metabolic disease | CPT/HCPCS: 96127; 99397 ==

== ENCOUNTER 2025-05-28 08:06 | Outpatient (REF) | payer MEDICARE, BC, SELFPAY ==
--- OUTSIDE RECORDS SUMMARY | 2024-04-09 03:30 | XMS_ITS ---
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 Name Role Phone Don (RETIRED) Ruben MERCADO Primary Care Provider Unavailable Juice Kothari Jr REASON FOR VISIT screening Encounters Encounter Location Date Provider Diagnosis [facility] [place] Outpatient [address] [place] [id number] 04/09/2024 Juice Kothari Jr Colon cancer screening [...] Of Treatment No Information Progress Notes * TSEFF YANG PDOB: (75 yo M)Acc No.[id number]:04/09/2024 COLON WITH MAC Patient: Dilcia STEFF EASON Provider: Alex Kothari MD :1950 A ge:73 Y S ex:Male Date:04/09/2024 Address:[address] [place], [place] [phone] Pcp:Ruben Ochoa (RETIRED) MD Subjective: * Chief [...] 0 04/09/2024 Generated for Fabián kiran/Benny/Diomedesitting on: 08:10 AM EDT
--- OUTSIDE RECORDS SUMMARY | 2025-05-28 08:10 | XMS_ITS | Patient Health Record ---
Author Organization [facility] [place] Address [address] [place] [address] Care Team Providers Care Provider Relations Representative Name Role Phone Ruben Ochoa MD Primary Care Provider Unavailab Kishore Retana Unavailable [phone] Reason For Referral No Information Medications Medication [...] Risk Notes Problem Pain in left foot ([id number] 107) Pain in left foot (M79.672) Active [...] Medicare National [employer] [address] [place] [address] [id number] Alvin Lazo Self - patient is the insured 7 [facility] [address] [place] [address] [id number] Shireen Lazo Spouse - patient is the spouse of the insured 6 Medical (General) History Medical History History ICD Code Diabetic Heart disease Hypertension Measles Mumps Chicken pox Surgical History Surgery Date(Month/Year) Stent 05/2013
--- OUTSIDE RECORDS SUMMARY | 2025-05-28 08:10 | XMS_ITS | Patient Health Record ---
Author Organization [facility] Address [address] [place] [address] Care Team Providers Care Technical Developer Name Role Phone Don (RETIRED) Ruben MERCADO Primary Care Provider Unavailable Juice Kothari Jr Unavailable Allergies No Known Allergies Reason For Referral No Information Medications Medication SIG (Take, Route, Frequency, Duration) Notes Start Date End Date Status MiraLax (colon prep) 17 GM/SCOOP mixed with Gatorade or Crystal Light Orally begin at 5:00 p.m. the day before the procedure; Duration: 1 day 01/15/2024 Active Losartan Potassium 50 [...] Problem Status W/U Status Risk Notes Problem Colon cancer screening (520574359) Colon cancer screening (Z12.11) Active confirmed Problem Constipation (77799446) Constipation, unspecified constipation type (K59.00) Active confirmed Problem Gastroesophageal reflux disease (935710192) Gastroesophageal reflux disease, unspecified whether esophagitis present (K21.9) Active confirmed Encounters Encounter Location Date Provider Diagnosis [facility] [address] [facility] [address] [place] [address] 07/16/2024 Juice Kothari Jr Plan Of Treatment Future Test Test Name Order Date UPPER GI ENDOSCOPY 04/06/2018 COLONOSCOPY 04/06/2018 COLONOSCOPY 01/15/2024 Insurance Providers Payer Name Payer Address Payer Phone Subscriber Number Group Number Insured Name Patient Relationship to Insured Coverage Start Date Coverage End Date MEDICARE OF [place] [address] [place] [phone] [id number] STEFF CONTRERAS Self - patient is the insured [facility] [address] [place], [place] [id number] [phone] [id number] STEFF CONTRERAS Self - patient is the [...]
--- OUTSIDE RECORDS SUMMARY | 2025-05-28 08:11 | XMS_ITS | Patient Health Record ---
Author Organization [facility] Address [address] [place] [address] Care Team Providers Care Nurse Receptionist Name Role Phone PCP, NO Primary Care Provider Unavailabl e ORLANDO REULAS Unavailable Unavailable Allergies No Known Allergies Reason For Referral No Information Medications Medication SIG (Take, Route, Fr equency, Duration) Notes Start Date End Date Status amLODIPine Besylate Active Spironolactone Activ e Aspir-81 Active Losartan Potassium A ctive Carvedilol Active Social History Tobacco Use: Social History Observation Description Date Details (start date - stop date) Never Smoker NA - NA Social History Tobacco Use: Social Info Question Answer Notes Tobacco Use/Smoking Are you a nonsmoker Additional Details Category Social Info Options Details Drugs/Alcohol: Do you use marijuana? Christopher es Do you drink alcohol? No Problems Problem Type SNOMED Code ICD Code Onset Dates Problem Status W/U Status Risk Notes Problem Low back pain (280533163) Low back pain (M54.5) Active confirmed Problem High risk drug monitoring status (986246255) Long-term current use of opiate analgesic (Z79.891) Active confirmed Plan Of Treatment Pending Test Test Name Order Date 12 Panel Drug Screen 10/20/2020 Insurance Providers Payer Name Payer Address Payer Phone Subscriber Number Group Number Insured Name Patient Relationship to Insured Coverage Start Date Coverage End Date MEDICARE OF [place] [employer] [address] [place] [phone] [id number] STEFF CONTRERAS Self - patient is the insured 7 [facility] [address] [place] [address] [phone] [id number] STEFF CONTRERAS Self - patient is the insured 0 Medical (General) History Medical History History ICD Code High blood pressure Chest pain Diabetes Angioplasty Surgical History Surgery Date(Month/Year) coronary stent 2013
== END 2025-05-28 08:07 | disposition home or self-care (01) ==
LOC: HO.HMGCLDS 08:06
PROVIDERS: PCP Internal Medicine; Visit Provider Internal Medicine
DX: Z12.5 Encounter for screening for malignant neoplasm of prostate (principal); I10 Essential (primary) hypertension; Z86.39 Personal history of other endocrine, nutritional and metabolic disease
CPT/HCPCS: 36415; 83036; 84153